=== PATIENT | female | born 1930 | race Caucasian/White ===

== ENCOUNTER 2017-09-29 11:15 | Inpatient (IN) | payer OTHER ==
[~2017-09-29] VITALS: Ht 157.5 cm; Wt 53.1 kg
--- NOTE | 2017-09-29 11:53 | NUR ---
PT AMBULATORY TO OB ROOM
--- NOTE | 2017-09-29 11:54 | NUR ---
PT C/O DIARRHEA/VOMITING X 2 DAYS. PPLACED PT ON, VSS. PT A/O X 4, PT'S RESP E/U,PT ABLE TO SPEAK FULL SENTENCES.AWAITING DR ZAPATA.
--- NOTE | 2017-09-29 12:02 | NUR ---
dr freitas at bedside
--- NOTE | 2017-09-29 12:21 | NUR ---
PT REFUSE URINE CATH, NOTIFIED
[2017-09-29 12:35] LABS: BASOPHIL % 0.9 % (0-2); PLATELET COUNT 386 x10^3mcL (130-400); RED CELL DISTRIBUTION WIDTH 12.5 % (11.5-14.5)
--- NOTE | 2017-09-29 12:49 | NUR ---
PER DAUGHTER PT AGITATED ,SHAKING, MEDICATED WITH ATIVAN
[2017-09-29 13:01] LABS: CALCIUM 8.2 mg/dL (8.5-10.1); CARBON DIOXIDE 22.5 mmol/L (21-32); CHLORIDE SERUM 103 mmol/L (98-107); CREATININE SERUM 1.5 mg/dL (0.6-1.0); GLUCOSE SERUM 109 mg/dL (74-106); POTASSIUM SERUM 3.8 mmol/L (3.5-5.1); SODIUM SERUM 136 mmol/L (136-145)
[2017-09-29] MEDS ORDERED: TRAZODONE50 M1 PO (13:11)
[2017-09-29] MEDS ORDERED: LIPI10 PO (13:11)
[2017-09-29] MEDS ORDERED: NOR5 PO (13:11)
[2017-09-29] MEDS ORDERED: VERAPAMIL HCL240 MG PO (13:12)
[2017-09-29 13:13] LABS: ALKALINE PHOSPHATASE 85 U/L (46-116); ALT/SGPT 12 U/L (14-59); AMYLASE 25 U/L (25-115); AST/SGOT 15 U/L (15-37); BILIRUBIN TOTAL 0.74 mg/dL (0.20-1.00); LIPASE 37 IU/L (73-393); T4(THYROXINE) 6.9 ug/dL (4.7-13.3); TOTAL PROTEIN, SERUM 6.3 g/dL (6.4-8.2)
[2017-09-29 13:19] LABS: ALBUMIN 2.6 g/dL (3.4-5.0)
[2017-09-29 13:20] LABS: CHOLESTEROL 112 mg/dL (<200); HDL CHOLESTEROL 62 mg/dL (40-60)
--- NOTE | 2017-09-29 13:30 | NUR ---
REPORT GIVEN LOYDA
--- NOTE | 2017-09-29 14:10 | NUR ---
RECEIVED PT FROM ED VIA [employer], CAME IN DUE TO DIARRHEAL EPISODES X2 WEEKS. PT IS AAOX4. NO SOB NOTED, LUNG SOUNDS CTA. DENIES CHEST PAIN/PRESSURE, SR W/ BBB AND MILD ST ELEVATION. DENIES ABDOMINAL PAIN. STATED THAT SHE HAS INTERMITTENT NAUSEA, BUT DENIES NAUSEA AT THIS TIME. PT UNABLE TO REMEMBER HOW MANY DIARRHEAL EPISODES SHE HAD TODAY. IV SITE PATENT AND INTACT. SIDE RAILS UPX2. CALL LIGHT ON REACH. DAUGHTER AND AT BEDSIDE. ENDORSED TO PRIMARY NURSE LOYDA FOR CONTINUITY OF CARE. DR. HOLLIDAY AT BEDSIDE.
[2017-09-29 14:33] VITALS: BP 116/53
[2017-09-29 14:36] VITALS: Ht 157.5 cm; Wt 53.1 kg
[2017-09-29 14:45] LABS: MAGNESIUM 1.7 mg/dL (1.8-2.4); PHOSPHOROUS 3.3 mg/dL (2.5-4.9)
[2017-09-29 14:46] LABS: CHOLESTEROL/HDL RATIO 1.8
[2017-09-29 16:54] LABS: microscopic required? YES; urine erythrocyte 1+ (NEGATIVE)
--- NOTE | 2017-09-29 17:54 | NUR ---
PT COMPLAINING OF NAUSEA, GIVEN MED, SEE MAR.
--- NOTE | 2017-09-29 18:00 | NUR ---
PT LAYING IN BED. A/OX4. NO REPORT OF PAIN. NO SIGN OF ACUTE DISTRESS. NO SOB. NO COMPLAINT OF CHEST PAIN. FAMILY AT BEDSIDE. IV TO RIGHT HAND, SITE WNL. NO COMPLAINT OF PAIN AT IV. IV FLUIDS FLOWING. NSR ON TELE. COMPLAINT OF NAUSEA/VOMIT. GREEN EMESIS IN BASIN. GIVEN MED FOR N/V. SEE MAR. BED IN LOW POSITION. CALL LIGHT WITHIN REACH. WILL ENDORSE TO ONCOMING SHIFT.
[2017-09-29 18:13] VITALS: BP 119/57
--- NOTE | 2017-09-29 19:36 | NUR ---
RECEIVED PT FROM PREVIOUS SHIFT. PT A/OX4. DENIES PAIN. DENIES SOB ON RA. IV TO R HAND PATENT AND INFUSING MAG RIDER WITH NO S/S OF INFILTRATION. DRESSING TO IV CAUSING DISCOMFORT- REMOVED AND REDRESSED, CDI. FAMILY AT BEDSIDE. COMMODE AT BEDSIDE. CALL LIGHT WITHIN REACH, BED IN LOW POSITION. WILL CONTINUE TO MONITOR.
--- NOTE | 2017-09-29 19:49 | NUR ---
ROLLER MAKER IN ROOM FOR BLADDER US.
[2017-09-29 20:32] VITALS: BP 142/57
--- NOTE | 2017-09-30 01:31 | NUR ---
IV UNINTENTIONALLY REMOVED BY PATIENT. NEW IV PLACED TO RFA BY DON RN. IV INFUSION RESUMED. WILL CONTINUE TO MONITOR.
--- NOTE | 2017-09-30 01:35 | NUR ---
PT WITH LARGE LOOSE BM. CLEANED AND REPOSITIONED. UNABLE TO COLLECT FOR SAMPLE. CALL LIGHT WITHIN REACH, BED IN LOW POSITION. WILL CONITNUE TO MONITOR.
--- NOTE | 2017-09-30 05:25 | NUR ---
AT BEDSIDE TO GIVE FLEETS ENEMA, PT WITH NEW RECTAL PROLAPSE. DR MIRANDA NOTIFIED. DR MARTINEZ AND DR DOMINGUEZ AT BEDSIDE SUCCESSFULLY PUSHED RECTUM BACK IN. PT DENIES PAIN. WILL CONTINUE TO MONITOR.
[2017-09-30 05:33] VITALS: BP 101/50
[2017-09-30 06:45] LABS: CARBON DIOXIDE 25.5 mmol/L (21-32); CHLORIDE SERUM 106 mmol/L (98-107); CREATININE SERUM 1.2 mg/dL (0.6-1.0); GLUCOSE SERUM 118 mg/dL (74-106); MAGNESIUM 2.9 mg/dL (1.8-2.4); POTASSIUM SERUM 4.1 mmol/L (3.5-5.1); SODIUM SERUM 138 mmol/L (136-145)
[2017-09-30 06:53] LABS: BASOPHIL % 0.4 % (0-2); PLATELET COUNT 300 x10^3mcL (130-400); RED CELL DISTRIBUTION WIDTH 12.8 % (11.5-14.5)
--- NOTE | 2017-09-30 07:05 | NUR ---
RESTING IN BED, FAM AT BEDSIDE, PT IS ABLE TO VERBALIZE NEEDS WITH CLEAR SPEECH, [place], HEARING AIDS AT HOME, REPORTS LAST BM WITH "VERY LOOSE STOOL" ABOUT 0200, DENIES ACTIVE RECTAL BLEEDING, PAIN OR DISCOMFORT, PT IS TO HAVE COLONOSCOPY THIS AM BY DR BARRAGAN, ACTIVE BOWEL SOUNDS X4 QUADS, ABD SOFT, NONTENDER, DENIES N&V AT THIS TIME, HAS BEEN NPO SINCE 0000, COLLECTION OF STOOL FOR C-DIF STILL PENDING, REORIENTED TO ROOM AND CALL LIGHT, WILL CONTINUE TO PROVIDE CARE.
--- NOTE | 2017-09-30 08:40 | NUR ---
ROUNDS WITH DR MIRANDA AND MEDICAL TEAM, ME UPDATED PT ON CURRENT POC.
--- NOTE | 2017-09-30 08:47 | NUR ---
REPORT GIVEN TO RUDY DOYLE IN GI LAB. PATIENT TAKEN DOWNSTAIRS FOR COLONOSCOPY, NIECE TO STAY WITH PATIENT DURING RECOVERY.
--- NOTE | 2017-09-30 10:04 | NUR ---
MAXINE RN REPORTS COLONOSCOPY COMPLETED, PT RECEIVED 62.5MCG FENTANYL, 2MG VERSED, 150ML NS, DX "SEVERE DIVERTICULOSIS, MULTIPLE RECTAL PROLAPSE. PT IS READY TO COME UP TO THE FLOOR.
--- NOTE | 2017-09-30 10:36 | NUR ---
REPORTS FEELING NAUSEATED, HAD EPISODE OF EMESIS, ZOFRAN ADMINISTERED ORDERED, PT HAD LOOSE BM, NO RECTAL PROLAPSE NOTED, PROVIDED HYGIENE CARE, ASSISTED TO POSITION OF COMFORT, FAM AT BEDSIDE, WILL CONTINUE TO PROVIDE CARE.
[2017-09-30 10:37] VITALS: BP 145/62
--- NOTE | 2017-09-30 10:51 | NUR ---
LATE ENTRY FOR 1035:DR CM AT BEDSIDE TO ASSESS AND UPDATE PATIENT ON CURRENT POC, ALL QUESTIONS ANSWERED.
[2017-09-30] MEDS ORDERED: CAL80 PO (11:31)
[2017-09-30] MEDS ORDERED: METP PO (11:32)
[2017-09-30] MEDS ORDERED: SEN PO (11:34)
[2017-09-30] MEDS ORDERED: AMBIEN5 MG PO (11:35)
[2017-09-30] MEDS ORDERED: KEFLEX500 M1 PO (11:52)
[2017-09-30] MEDS ORDERED: BD LACTINEX1.4 MG PO (11:52)
[2017-09-30] MEDS ORDERED: IMODIUM A-D2 M3 PO (11:56)
--- NOTE | 2017-09-30 13:03 | NUR ---
ABLE TO TOLERATE 50% JELLO CUP WITHOUT N&V, FAM AT BEDSIDE, WILL CONTINUE TO PROVIDE CARE.
[2017-09-30 13:38] VITALS: BP 149/70
[2017-09-30 13:45] VITALS: BP 149/70
[2017-09-30] MEDS ORDERED: ZOF4 PO (15:24)
--- NOTE | 2017-09-30 17:10 | NUR ---
DAUGHTER AT BEDSIDE REQUESTING FOR PT TO REMAIN IN HOSPITAL UNTIL "HER NAUSEA IS CONTROLLED," NO EPISODES OF VOMIT NOTED OR REPORTED, PATIENT ABLE TO TAKE SIPS OF GINGERALE SODA, REPORTS HELPFUL WITH NAUSEA, WILL ADMINISTER DOSE OF PROTONIX AND METOCLOPRAMIDE ORDERED.
[2017-09-30 17:35] VITALS: BP 149/55
--- NOTE | 2017-09-30 18:26 | NUR ---
ABLE TO TOLERATE REG DINNER WITHOUT N&V, AMBULATED TO RESTROOM WITH DAUGHTER'S ASSISTANCE.
--- NOTE | 2017-09-30 19:05 | NUR ---
PATIENT DISCHARGED HOME, REVIEWED DISCHARGE INSTRUCTIONS WITH DAUGHTER AND PATIENT, INCLUDING FOLLOW UP APPOINTMENT WITH PCP, DAUGHTER AND PATIENT VERBALIZED UNDERSTANDING OF DISCHARGE INSTRUCTIONS. IV D/C'D, NO BLEEDING OR PHLEBITIS NOTED, COVERED WITH BANDAID. TELE MONITOR REMOVED. PATIENT ASSISTED DOWNSTAIRS VIA WHEELCHAIR BY RECYCLING MANAGER AND FAMILY.
== END 2017-09-30 19:05 | disposition home or self-care (01) | DRG 393 ==
LOC: ED 11:15 → DU 12:22
PROVIDERS: Emergency Medicine; Internal Medicine Gastroenterology; ADMIT Family Medicine
PROC: 0DJD8ZZ Inspection of Lower Intestinal Tract, Via Natural or Artificial Opening Endoscopic (ICD-10-PCS; principal; 2017-09-30 09:15)
DX: K62.3 Rectal prolapse (principal); N17.0 Acute kidney failure with tubular necrosis; E43 Unspecified severe protein-calorie malnutrition; N39.0 Urinary tract infection, site not specified; N13.30 Unspecified hydronephrosis; E86.0 Dehydration; K57.30 Diverticulosis of large intestine without perforation or abscess without bleeding; R31.9 Hematuria, unspecified; E83.42 Hypomagnesemia; E83.51 Hypocalcemia; G47.00 Insomnia, unspecified; E78.5 Hyperlipidemia, unspecified; D64.9 Anemia, unspecified; I10 Essential (primary) hypertension; D72.829 Elevated white blood cell count, unspecified; Z68.21 Body mass index [BMI] 21.0-21.9, adult; Z85.3 Personal history of malignant neoplasm of breast
CPT/HCPCS: 45378; 83880; 87046; 87046-59; C9113; J1200; J1610; J1885; J1956; J2060; J2250; J2310; J2405; J2550; J2765; J3010; J3475; J3480; J3490; J7030; Q0092